=== PATIENT | female | born 1980 | race Caucasian/White ===

== ENCOUNTER 2018-07-07 13:11 | Outpatient (CLI) ==
[2015-01-07 09:21] VITALS: BMI 44.2
--- NOTE | 2018-07-07 14:19 | DI ---
EXAM: PA and lateral views of the chest HISTORY: Chest pain COMPARISON: None FINDINGS: The cardiomediastinal silhouette is normal. There is no pneumothorax or pleural effusion. There is no consolidation, nodule or mass. The osseous structures are unremarkable. IMPRESSION: No acute cardiopulmonary process
== END 2018-07-07 13:12 | disposition home or self-care (01) ==
LOC: CAR 13:11
PROVIDERS: ATTEND Physician Assistant
DX: R07.9 Chest pain, unspecified (principal); R05 Cough
CPT/HCPCS: 93005; 93010